=== PATIENT | female | born 1970 | race Caucasian/White ===

== ENCOUNTER → 2018-10-16 | Outpatient (CLI) | payer OTHER ==
--- NOTE | 2018-10-17 18:27 | RADRPT ---
PROCEDURE: XR Left hip and pelvis. CLINICAL INDICATION: Left hip pain and pelvic pain. TECHNIQUE: 3 views. Frontal pelvis. Frontal and lateral left hip. COMPARISON: None. FINDINGS: There is no fracture or dislocation. The soft tissues are normal. The right hip is unremarkable. The left hip demonstrates degenerative change with subarticular sclero sis, subarticular cysts, joint space narrowing, and osteophytes. There is no lytic or blastic lesion. There is no radiopaque foreign body. IMPRESSION: 1. Moderate degenerative changes of the left hip. 2. Otherwise unremarkable study. RPTAT: QQ .Benjamin Cooley MD, MD Date Time Electronically viewed and signed by .Benjamin Cooley MD, on 10/17/2018 18:27 .R/
== END | disposition home or self-care (01) ==
LOC: HKI 13:07
PROVIDERS: ATTEND Orthopaedic Surgery Adult Reconstructive Orthopaedic Surgery
DX: M16.12 Unilateral primary osteoarthritis, left hip (principal)
CPT/HCPCS: 73502

== ENCOUNTER 2018-12-26 10:35 | Inpatient (IN) | payer OTHER ==
[2018-12-26] VITALS (23 sets, daily range): BP systolic 101–145; BP diastolic 51–77; PULSE 78–144; RESP 13–30; Ht 157.5 cm; Wt 89.4 kg
[~2018-12-26] VITALS: Ht 157.5 cm; Wt 89.4 kg
[2018-12-26] MEDS ORDERED: VENL150C PO (11:22)
[2018-12-26] MEDS: LACTATED RINGER'S 1,000 ML IV SCH ×3 (11:52→21:17)
[2018-12-26] MEDS ORDERED: ACETAMINOPHEN 500 MG TAB PO ONE (12:00)
[2018-12-26] MEDS ORDERED: LANSOPRAZOLE 30 MG CAP PO ONE (12:00)
[2018-12-26] MEDS ORDERED: DEXAMETHASONE 4 MG/ML 1 ML INJ IV ONE (12:00)
[2018-12-26] MEDS ORDERED: ACETAMINOPHEN 1000MG/100ML IV 100 ML IVPB ONE (12:00)
[2018-12-26] MEDS ORDERED: GABAPENTIN 300 MG CAP PO ONE (12:00)
[2018-12-26] MEDS ORDERED: CEFAZOLIN 2 GM/50 ML (PMX) 50 ML IVPB ONE (12:00)
[2018-12-26] MEDS ORDERED: CELECOXIB 200 MG CAP PO ONE (12:00)
[2018-12-26] MEDS ORDERED: TRANEXAMIC ACID 1GM/100ML(PMX) 100 ML AT CLOSING IVPB ONE (12:00)
[2018-12-26] MEDS ORDERED: ONDANSETRON 4 MG INJ IV ONE (12:00)
--- NOTE | 2018-12-26 12:19 | PREAC ---
Date/Time of Note Date/Time of Note DATE: 12/26/18 TIME: 12:18 Anesthesia Eval and Record Evaluation Time Pre-Procedure Interview DATE: 12/26/18 TIME: 12:18 Age 48 Sex female NPO: 8 hrs Preoperative diagnosis L Hip OA Planned procedure L total hip replacement Past Medical History Past Medical History: Includes GI: Morbid obesity Surgery & Anesthesia Issues No known issue Meds Anticoagulation: No Beta Shanda within 24 hr: No Reason Beta Shanda not given: Pt. not on B-Shanda Reported Medications Venlafaxine Hcl* (Effexor XR*) 150 Mg Cap.sr.24h, 150 MG PO DAILY, CAP 12/26/18 Current Medications Lactated Ringer's 1,000 ml @ 125 mls/hr Q8H IV Last administered on 12/26/18at 11:52; Admin Dose 125 MLS/HR; Start 12/26/18 at 12:00; Stop 12/26/18 at 22:00 Cefazolin Sodium/ Dextrose 50 ml @ 100 mls/hr PRE-OP ONCE IVPB ; Start 12/26/18 at 12:00; Stop 12/26/18 at 12:29 Tranexamic Acid 100 ml @ 200 mls/hr PRE-OP ONCE IVPB ; Start 12/26/18 at 12:00; Stop 12/26/18 at 12:29 Tranexamic Acid 100 ml @ 200 mls/hr AT CLOSING ONCE IVPB ; Start 12/26/18 at 12:00; Stop 12/26/18 at 12:29 Ropivacaine/ Clonidine/ Epinephrine/ Ketorolac Tromethamine/ Sodium Chloride INTRA-OP INJ ; Start 12/26/18 at 16:30; Stop 12/26/18 at 22:00 Meds reviewed: Yes Allergies Coded Allergies: No Known Allergy (Unverified , 12/26/18) Allergies Reviewed: Yes Labs/Studies Labs Reviewed: Reviewed by anesthesiologist test: Negative Studies: ECG Pre-procedure Exam Last vitals Vital Signs Date Temp Pulse Resp B/P (MAP) Pulse Ox O2 O2 Flow FiO2 Time Delivery Rate 12/26/18 96.8 79 16 133/77 95 Room Air 12:09 (95) Airway: Adequate mouth opening, Adequate thyromental dist Mallampati: Mallampati II Teeth: Normal Lung: Normal Heart: Normal ASA Physical Status ASA physical status: 2 Emergency: None Planned Anesthetic General/MAC: ETT Neuraxial: Spinal Planned Pain Management Sub-arachniod narcotics Pre-operative Attestations Prior to commencing anesthesia and surgery, the patient was re-evaluated, there was verification of: *The patient's identity *The results of appropriate recent lab work and preoperative vital signs *The above evaluation not changing prior to induction *Anesthetic plan, risk benefits, alternative and complications discussed with patient/family; questions answered; patient/family understands, accepts and wishes to proceed. WILMER FRANCISCO December 26, 2018 12:19
--- NOTE | 2018-12-26 12:28 | HPN ---
Date/Time of Note Date/Time of Note DATE: 12/26/18 TIME: 12:28 Interval H&P Admission Note Pt. seen H&P reviewed: No system changes Patient denies fever, chills, shortness of breath, chest pain, nausea/vomiting, constipation, diarrhea, numbness, and tingling. MUSCULOSKELETAL: Left lower extremity Skin intact Sensation intact to light touch in a sural, saphenous, deep peroneal, superficial peroneal, medial and lateral plantar nerve distribution. Motor is intact, patient able to dorsiflex and plantarflex ankle and extend and flex great toe. Dorsalis Pedis pulse +2, Brisk capillary refill. Compartments are soft. Calves non-tender to palpation bilaterally. BHUPINDER LYLE MD December 26, 2018 12:28
[2018-12-26] MEDS ORDERED: morphine SULFATE/PF (10 MG/10 ML) INJ ONE (12:29)
[2018-12-26] MEDS ORDERED: ALBUTEROL 0.083% (NEB) 2.5 MG/3 ML AMP HHN PRN (12:30)
[2018-12-26] MEDS ORDERED: ONDANSETRON 4 MG INJ IV PRN (12:30)
[2018-12-26] MEDS ORDERED: METOCLOPRAMIDE 10 MG INJ IV PRN (12:30)
[2018-12-26] MEDS ORDERED: MEPERIDINE 25 MG INJ IV PRN (12:30)
[2018-12-26] MEDS ORDERED: FENTAnyl 50 MCG/ML VIAL IV PRN ×2 (12:30)
[2018-12-26] MEDS ORDERED: DESFLURANE 15 MIN ONE (12:30)
[2018-12-26] MEDS ORDERED: HYDROmorphONE 1 MG/5 ML IV SYRINGE IV PRN ×3 (12:30)
[2018-12-26] MEDS ORDERED: DIPHENHYDRAMINE 50 MG INJ IV PRN ×2 (12:30→17:00)
[2018-12-26] MEDS ORDERED: MIDAZOLAM 1 MG/ML 2 ML INJ ONE (12:31)
[2018-12-26] MEDS: TRANEXAMIC ACID 1GM/100ML(PMX) 100 ML PRE-OP IVPB ONE ×3 (14:03→16:12)
[2018-12-26] MEDS ORDERED: SUCCINYLCHOLINE CHLORIDE 100 MG/5 ML SYG IV ONE (14:13)
[2018-12-26] MEDS ORDERED: PROPOFOL 20 ML ONE (14:13)
[2018-12-26] MEDS ORDERED: TRANEXAMIC ACID 1GM/100ML(PMX) 100 ML ONE (14:13)
[2018-12-26] MEDS ORDERED: LIDOCAINE 100 MG SYRINGE ONE (14:13)
[2018-12-26] MEDS ORDERED: CEFAZOLIN 1 GM INJ ONE (14:13)
[2018-12-26] MEDS ORDERED: ROCURONIUM 50 MG INJ ONE (14:13)
[2018-12-26] MEDS ORDERED: VANCOMYCIN 1 GM INJ ONE (16:00)
[2018-12-26] MEDS ORDERED: SUGAMMADEX SODIUM 200 MG/2 ML VIAL IV ONE (16:37)
[2018-12-26] MEDS ORDERED: ROPIVACAINE 0.5 % 30 ML VIAL ONE (16:43)
[2018-12-26] MEDS ORDERED: DOCUSATE SODIUM 100 MG CAP PO ONE (17:00)
[2018-12-26] MEDS ORDERED: SENNA/DOCUSATE NA (8.6MG/50MG) TAB PO PRN (17:00)
[2018-12-26] MEDS ORDERED: BETHANECHOL 25 MG TAB PO PRN (17:00)
[2018-12-26] MEDS ORDERED: NA PHOSPHATE/BIPHOS 133 ML ENEMA PR PRN (17:00)
[2018-12-26] MEDS ORDERED: MAGNESIUM HYDROXIDE 30ML CUP PO PRN (17:00)
[2018-12-26] MEDS ORDERED: NACL 0.9% 3 ML SYG IV SCH (17:00)
[2018-12-26] MEDS ORDERED: NALOXONE (0.4 MG/ML) INJ IV PRN (17:00)
[2018-12-26] MEDS ORDERED: HYDROmorphONE 1 MG/ML SYG IV PRN (17:00)
[2018-12-26] MEDS ORDERED: oxyCODONE 5 MG TAB PO PRN ×3 (17:00)
[2018-12-26] MEDS ORDERED: BISACODYL 10 MG SUPP PR PRN (17:00)
--- NOTE | 2018-12-26 17:35 | OPR ---
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 Postoperative Diagnosis As above Operation/Procedure Performed Left total hip replacement Intraoperative use of x-ray Surgeon see signature line Mechanical Product Design Engineer Hansel Sotelo Anesthesia Type: general, spinal Estimated Blood Loss: 250 - 300 ml's Transfusion none Specimen Femoral head Grafts/Implants Depuy Acetabulum: Stanton Gription 52mm 3 hole Dome Screw: 35mm x1 Liner: 36mm neutral Femur: S-ROM [id number] mm Neck: 30mm Sleeve: D small Femoral Head: 36mm 3mm ceramic head Complications none Disposition: PACU Procedure Description PREOP DIAGNOSIS: Left hip osteoarthritis This secondary to development dysplasia of the hip POSTOP DIAGNOSIS: Same. SURGICAL PROCEDURE: Left total hip arthroplasty (CPT code 44334 with modifier 22). Modifier 22 indicated to significant increase in complexity, effort, time of approximately 25% secondary to dysplasia of the hip requiring additional equipment and implants and obesity making exposure and visualization more difficult. INDICATIONS: The patient is a 48 year-old woman with an orthopaedic history significant for progressively worsening left hip pain. The patient failed conservative management and wished to pursue surgical options. On physical exam, they walk with a moderate antalgic gait. No previous open surgical scars. Guarded range of motion but no contractures. Neurovascularly intact. Radiographs reveal advanced osteoarthritis with dysplasia of the hip. INFORMED CONSENT: The operative procedure was explained using diagrams and/or three-dimensional models. The rehabilitation, the potential risks, benefits and alternatives were discussed at length. Specific risks discussed included but were not limited to excessive blood loss and the need for transfusion and therefore the risk of transmissible disease or transfusion reaction, deep infection and the potential need for repetitive debridements, implant removal, long-term antibiotic therapy, possibly requiring deep venous access, leg-length discrepancy, dislocation, possibly recurrent, with the need for closed versus open reduction, bracing, femoral or acetabular fracture and the need for further surgery for fixation, neurovascular injury with temporary or permanent numbness, tingling, weakness or paralysis, deep venous thrombosis, pulmonary embolism and , persistent pain, weakness, or limp, late aseptic loosening and the need for revision, polyethylene wear-induced osteolysis and related problems, and finally, a wide variety of unanticipated medical problems. The opportunity to ask questions and address any concerns was provided. The patient wished to proceed. FINDINGS: 8 to 10 cm of adipose tissue above the IT band. Was severe bursitis of the greater trochanter. The femoral head had denuded cartilage throughout with ecchymosis and severe synovitis. Femoral anteversion was increased as expected. The acetabulum was very small and shallow also expected secondary to dysplasia. There is a large pulmonary hypertrophic labrum. Denuded cartilage and cystic formation in the acetabulum as well. Visualization and exposure was extremely difficult secondary to patient's body habitus. SURGERY IN DETAIL: The patient was taken into the Operating Room and placed supine on the operating table. Preoperatively, they were administered Ancef. They were administered spinal and general anesthesia by the Anesthesia Department. Dexamethasone 10mg IV was administered. The patient was placed on an [facility] Lateral Positioner in a right lateral decubitus position with the left hip superior. An axillary roll was placed, all pressure points were confirmed padded. The left hip region was prepped and draped in sterile fashion. A surgical pause was performed, correctly identifying the patient's name, the correct medical record number, the correct diagnosis, correct surgical procedure, and the correct extremity. 1g of tranexamic acid was dosed at the time of incision A posterolateral skin incision, approximately 25 cm in length was made, centered over the greater trochanter, skin and subcutaneous tissue sharply dissected. Deep fascial layer was identified and incised in line with the skin incision. Gluteus medius was retracted anteriorly. Piriformis tendon was not and was released with the remaining short external rotators. The interval between the gluteus minimus and hip capsule was developed superiorly, and a superior retractor was placed. Short external rotators were subperiosteally incised from the posterior proximal femur to the level of the lesser trochanter and an inferior retractor was placed. A posterior capsulotomy was performed. Two tag stitches were placed in the capsule. The hip was dislocated. A femoral neck osteotomy was performed at the preoperatively templated level and at a 90 degree angle as the S-ROM femoral system was being utilized as. A radial incision was made in the inferior capsule to the level of transverse acetabular ligament, which was identified, and an inferior retractor was placed inferior to the transverse acetabular ligament or inferior to the cotyloid notch. An anterior retractor was placed at the rim of the acetabulum. The acetabular labrum was then sharply excised. There was a large pulvinar in the base of the acetabulum, which was removed with electrocautery. The acetabulum was shallow and dysplastic with deficient posterior and superior coverage. The acetabulum was then sequentially reamed, beginning at 43 mm, up to a size 51 outer diameter reamer. A size 52 Gription- Stanton cup was inserted. A single dome screw was placed with excellent purchase, and a neutral 36 mm polyethylene trial was inserted and attention was placed to preparing the femur. Soft tissues were removed from the junction of the greater trochanter and the femoral neck osteotomy. A box osteotome was used lateralize the starting point. A starting awl was utilized, followed by a lateralizing reamer, followed by axial reamers for the S-ROM system up to a size 9.5mm for size 9mm stem. At this time the appropriate size and length stem was attached to the reamer for t he femoral metaphysis. This was reamed to a size 14 mm. The calcar was then reamed to size D small. A 30+4 mm neck was trialed with a neutral femoral head was inserted at this point it was noted the hip was significantly long and reduction was not possible. It was difficult to visualize the level of the lesser trochanter at the time of the femoral neck cut neck cut was made slightly high per the templating done preoperatively. Given that this was too much length the trial was removed the neck was recut taken away several more millimeters. And the trial was replaced. Range of motion stability was very good. Intraoperative x-ray was obtained demonstrated good position of all components however the offset was too great. Therefore the trial was removed a 30 mm neck was placed with a +3 ceramic head to obtain equal leg lengths. Range of motion and stability were quite good, including forward flexion to greater than 90 degrees, internal rotation greater than 80 degrees at 90 degrees flexion, internal rotation greater than 80 degrees with the hip adducted and at 45 degrees of flexion. External Rotation was also tested, and was stable with no impingement or instability at full extension and 30 degrees external rotation. Ranawat sign was 50 degrees. Intraoperative x-ray revealed the hip to have satisfactory position of all components. The hip was dislocated in controlled manner using a bone hook and the trial components removed. Local anesthetic was injected periarticular. A formal neutral 36 mm polyethylene was inserted into the cup, confirmed seated and locked. On the femoral side, a S-ROM size D small sleeve was placed followed by insertion of a 9 x 14 x 150 mm stem placed in the previously trialed anteversion. A 36 +3 mm head was inserted onto the taper. The hip was reduced. One final time range of motion, stability, and soft tissue tension were satisfactory. The wound was thoroughly irrigated. 1g of tranexamic acid was dosed. The previously tagged arthrotomy, as well as the piriformis tendon could not be repaired secondary to previous shortening and contracture of the tissues. At this time 1 g of vancomycin powder was placed deep in the wound. This is felt to be warranted secondary to length of the case as well as significant adipose tissue with a potential for wound infection. The deep fascial layer was closed with 1 Vicryl in a [id number], interrupted fashion, deep s ubcutaneous tissues irrigated and closed with 0 Vicryl interrupted fashion in 2 separate layers, subcutaneous tissues irrigated, closed with 2-0 Vicryl in an inverted, interrupted fashion. The skin was closed with lavon. A sterile dressing was applied, abduction pillow was placed between the legs, and the patient was transferred to a supine position. Postoperative clinical leg lengths, rotation of limb were neutral and symmetric. All Counts were correct x2 DISPOSITION: Patient transferred to PACU in stable condition. The patient will be weight bearing as tolerated on the operative extremity. PT will begin POD#0 if available. Posterior hip precautions for 3 months with an abduction pillow. Postoperative AP pelvis will be ordered in PACU. Bilateral knee high SCDs will be worn while admitted. ASA 81mg BID will be given for DVT prophylaxis for 6 weeks. Pain will be controlled with medication. The patient will follow up in clinic in approximately 2 weeks. Implant: DePuy: Acetabulum: Stanton Gription 52mm 3 hole Dome Screw: 35mm x1 Liner: 36mm neutral Femur: S-ROM [id number] mm Neck: 30mm Sleeve: D small Femoral Head: 36mm 3mm ceramic head BHUPINDER LYLE MD December 26, 2018 17:34
[2018-12-26] MEDS: CEFAZOLIN 2 GM/50 ML (PMX) 50 ML IVPB SCH (17:40)
[2018-12-26] MEDS ORDERED: hydrOXYzine HCL 25 MG TAB PO PRN (19:30)
--- NOTE | 2018-12-26 19:30 | CONS ---
Assessment/Plan Assessment/Plan Hospital Course (Demo Recall) 48 yo F with PMH osteoarthritis, depression, and anxiety presented to [facility] for elective total left hip replacement, POD #0 Assessment/Plan (Daily) 1. Osteoarthritis of left hip s/p total replacement, POD #0 - Management per Ortho - pain control - aspirin BID - PT ordered 2. Depression - continue home venlafaxine dose 3. Anxiety - Hydroxyzine PRN 4. Diet - regular 5. Disposition - Awaiting PT evaluation for discharge planning Thank you for allowing me to participate in the care of your patient. Please call with any questions Consultation Date/Type/Reason Admit Date/Time December 26, 2018 at 10:35 Date of Consultation: December 26, 2018 Type of Consult Internal Medicine Reason for Consultation medical management Date/Time of Note DATE: 12/26/18 TIME: 19:20 Hx of Present Illness 48 yo F with PMH osteoarthritis, depression and anxiety presented to [facility] for elective left total hip replacement. Patient was evaluated in PACU. Internal Medicine consultation was placed for medical management. Patient tolerated surgical intervention without any intraoperative complications. Patient denies any chest pain, shortness of breath, dizziness, cough, abdominal pain, urinary issues, constipation or diarrhea. All 12 systems reviewed and pertinent positives as per HPI. All others negative. Constitutional: No chills, No disoriented Eyes: No discharge ENT: No congestion Respiratory: No cough, No shortness of breath, No sputum, No wheezing Cardiovascular: No chest pain, No edema, No lightheadedness, No palpitations Gastrointestinal: No pain, No constipation, No diarrhea, No nausea, No vomiting Genitourinary: no complaints Musculoskeletal: No bone/joint pain Skin: No erythema, No laceration, No rash Neurologic: no complaints Endocrine: no complaints Lymphatic: no complaints Psychological: nl mood/affect Immunologic: no complaints Past Medical History Medical History: other (depression and anxiety) Home Meds Reported Medications Venlafaxine Hcl* (Effexor XR*) 150 Mg Cap.sr.24h, 150 MG PO DAILY, CAP 12/26/18 Medications Current Medications Lactated Ringer's 1,000 ml @ 125 mls/hr Q8H IV Last administered on 12/26/18at 11:52; Admin Dose 125 MLS/HR; Start 12/26/18 at 12:00; Stop 12/26/18 at 22:00 Lactated Ringer's 1,000 ml @ 80 mls/hr [id number] IV Last administered on 12/26/18at 17:42; Admin Dose 80 MLS/HR; Start 12/26/18 at 16:59 Oxycodone HCl (Roxicodone) 15 mg Q4H PRN PO .PAIN; Start 12/26/18 at 17:00 Oxycodone HCl (Roxicodone) 10 mg Q4H PRN PO .PAIN; Start 12/26/18 at 17:00 Oxycodone HCl (Roxicodone) 5 mg Q4H PRN PO .PAIN; Start 12/26/18 at 17:00 Hydromorphone HCl (Dilaudid) 1 mg Q3H PRN IV .BREAKTHROUGH PAIN; Start 12/26/18 at 17:00 Acetaminophen (Tylenol Tab) 1,000 mg Q8 PO ; Start 12/26/18 at 22:00 Ondansetron HCl (Zofran Inj) 4 mg Q4H PRN IV NAUSEA/VOMITING; Start 12/27/18 at 17:00 Cefazolin Sodium/ Dextrose 50 ml @ 100 mls/hr Q8H IVPB Last administered on 12/26/18at 17:40; Admin Dose 100 MLS/HR; Start 12/26/18 at 17:00; Stop 12/27/18 at 09:29 Gabapentin (Neurontin) 300 mg QHS PO ; Start 12/26/18 at 21:00 Dexamethasone (Decadron) 10 mg ONCE ONCE IV ; Start 12/27/18 at 07:00; Stop 12/27/18 at 07:01 Pantoprazole (Protonix Tab) 40 mg DAILY@06 PO ; Start 12/27/18 at 06:00 Docusate Sodium (Colace) 200 mg BID PO ; Start 12/27/18 at 09:00; Stop 12/29/18 at 21:01 Simethicone (Mylicon) 80 mg TID PRN PO .GAS; Start 12/26/18 at 17:00 Senna/Docusate Sodium (Senokot-S) 2 tab BID PRN PO .CONSTIPATION; Start 12/26/18 at 17:00 Magnesium Hydroxide (Milk Of Mag) 30 ml HS PRN PO .CONSTIPATION; Start 12/26/18 at 17:00 Bisacodyl (Dulcolax Supp) 10 mg DAILY PRN DE .CONSTIPATION; Start 12/26/18 at 17:00 Sodium Biphosphate/ Sodium Phosphate (Fleet Enema) 133 ml DAILY PRN DE .CONSTIPATION; Start 12/26/18 at 17:00 Diphenhydramine HCl (Benadryl) 25 mg Q4H PRN IV .ITCHING; Start 12/26/18 at 17:00 Naloxone HCl (Narcan) 0.2 mg Q2M PRN IV .RESP RATE; Start 12/26/18 at 17:00 IV Flush (NS 3 ml) 3 ml per protocol IV ; Start 12/26/18 at 17:00 Bethanechol Chloride (Urecholine) 25 mg URINARY CATH D/C PRN PO UNABLE TO VOID; Start 12/26/18 at 17:00 Aspirin (Halfprin) 81 mg BID PO ; Start 12/27/18 at 09:00 Allergies: Coded Allergies: No Known Allergy (Unverified , 12/26/18) Past Surgical History Past Surgical Hx: cholecystectomy Family History Significant Family History: no pertinent family hx Social History Alcohol Use: none Smoking Status: Former smoker Drug Use: none Exam/Review of Systems Exam Vitals Vital Signs Date Temp Pulse Resp B/P (MAP) Pulse Ox O2 O2 Flow FiO2 Time Delivery Rate 12/26/18 110 17 119/67 98 Room Air 18:10 (84) 12/26/18 8.0 17:15 12/26/18 98.3 17:05 Exam General: Patient is laying in bed and answers questions appropriately. no acute distress Mentation: Patient is alert and oriented 4, Head: Normocephalic atraumatic Eyes: EOMI, pupils reactive to light Neck: Supple, nontender, midline Respiratory: Clear to auscultation bilaterally. no wheezing or rhonchi Cardiovascular: S1, S2, regular rate and rhythm, no obvious murmurs Gastrointestinal: soft, nontender to palpation, nondistended, bowel sounds heard. no rebound or guarding Ext: Moves all extremities spontaneously. no edema, cyanosis or clubbing Skin: dressing in place left hip. no discharge or drainage Imaging Imaging PROCEDURE: XR Hip. CLINICAL INDICATION: Status Post Hip surgery TECHNIQUE: AP view of the left hip was performed. COMPARISON: None. FINDINGS: The patient is status post left total hip arthroplasty. Hardware appears intact and appropriate in position. There is no visualized fracture or dislocation. There is overlying subcutaneous emphysema and skin lavon. IMPRESSION: Status post left total hip arthroplasty. Intact hardware and near anatomic alignment. RPTAT: DD .Luis Armando Sorensen MD, MD Date Time Electronically viewed and signed by .Luis Armando Sorensen MD, MD on 12/26/2018 17:29 PROCEDURE: XR Pelvis. CLINICAL INDICATION: Status post total hip TECHNIQUE: Single AP view of the pelvis. COMPARISON: No prior studies are available for comparison. FINDINGS: The patient is status post left total hip arthroplasty. Hardware appears intact in appropriate position. There is overlying subcutaneous emphysema. The sacroiliac joints are normal. The right hip joint is normally aligned. IMPRESSION: Status post left total hip arthroplasty. Intact hardware and near anatomic alignment. RPTAT: DD .Luis Armando Sorensen MD, Date Time Electronically viewed and signed by .Luis Armando Sorensen MD, on 12/26/2018 17:26 Medications Medication Current Medications Lactated Ringer's 1,000 ml @ 125 mls/hr Q8H IV Last administered on 12/26/18at 11:52; Admin Dose 125 MLS/HR; Start 12/26/18 at 12:00; Stop 12/26/18 at 22:00 Lactated Ringer's 1,000 ml @ 80 mls/hr [id number] IV Last administered on 12/26/18at 17:42; Admin Dose 80 MLS/HR; Start 12/26/18 at 16:59 Oxycodone HCl (Roxicodone) 15 mg Q4H PRN PO .PAIN; Start 12/26/18 at 17:00 Oxycodone HCl (Roxicodone) 10 mg Q4H PRN PO .PAIN; Start 12/26/18 at 17:00 Oxycodone HCl (Roxicodone) 5 mg Q4H PRN PO .PAIN; Start 12/26/18 at 17:00 Hydromorphone HCl (Dilaudid) 1 mg Q3H PRN IV .BREAKTHROUGH PAIN; Start 12/26/18 at 17:00 Acetaminophen (Tylenol Tab) 1,000 mg Q8 PO ; Start 12/26/18 at 22:00 Ondansetron HCl (Zofran Inj) 4 mg Q4H PRN IV NAUSEA/VOMITING; Start 12/27/18 at 17:00 Cefazolin Sodium/ Dextrose 50 ml @ 100 mls/hr Q8H IVPB Last administered on 12/26/18at 17:40; Admin Dose 100 MLS/HR; Start 12/26/18 at 17:00; Stop 12/27/18 at 09:29 Gabapentin (Neurontin) 300 mg QHS PO ; Start 12/26/18 at 21:00 Dexamethasone (Decadron) 10 mg ONCE ONCE IV ; Start 12/27/18 at 07:00; Stop 12/27/18 at 07:01 Pantoprazole (Protonix Tab) 40 mg DAILY@06 PO ; Start 12/27/18 at 06:00 Docusate Sodium (Colace) 200 mg BID PO ; Start 12/27/18 at 09:00; Stop 12/29/18 at 21:01 Simethicone (Mylicon) 80 mg TID PRN PO .GAS; Start 12/26/18 at 17:00 Senna/Docusate Sodium (Senokot-S) 2 tab BID PRN PO .CONSTIPATION; Start 12/26/18 at 17:00 Magnesium Hydroxide (Milk Of Mag) 30 ml HS PRN PO .CONSTIPATION; Start 12/26/18 at 17:00 Bisacodyl (Dulcolax Supp) 10 mg DAILY PRN DE .CONSTIPATION; Start 12/26/18 at 17:00 Sodium Biphosphate/ Sodium Phosphate (Fleet Enema) 133 ml DAILY PRN DE .CONSTIPATION; Start 12/26/18 at 17:00 Diphenhydramine HCl (Benadryl) 25 mg Q4H PRN IV .ITCHING; Start 12/26/18 at 17:00 Naloxone HCl (Narcan) 0.2 mg Q2M PRN IV .RESP RATE; Start 12/26/18 at 17:00 IV Flush (NS 3 ml) 3 ml per protocol IV ; Start 12/26/18 at 17:00 Bethanechol Chloride (Urecholine) 25 mg URINARY CATH D/C PRN PO UNABLE TO VOID; Start 12/26/18 at 17:00 Aspirin (Halfprin) 81 mg BID PO ; Start 12/27/18 at 09:00 JACOBY WILCOX MD December 26, 2018 19:30
[2018-12-26] MEDS ORDERED: GABAPENTIN 300 MG CAP PO SCH (21:00)
[2018-12-26] MEDS: ONDANSETRON 4 MG INJ IV PRN (21:18)
[2018-12-26] MEDS: ACETAMINOPHEN 500 MG TAB PO SCH (21:18)
[2018-12-27 00:01] VITALS: BP 101/60; PULSE 89; RESP 18
[2018-12-27] MEDS: CEFAZOLIN 2 GM/50 ML (PMX) 50 ML IVPB SCH ×2 (01:05→09:47)
[2018-12-27 04:16] VITALS: BP 107/58; PULSE 84; RESP 18
[2018-12-27] MEDS: LACTATED RINGER'S 1,000 ML IV SCH (05:41)
[2018-12-27] MEDS: ACETAMINOPHEN 500 MG TAB PO SCH ×2 (05:42→14:19)
[2018-12-27] MEDS: ONDANSETRON 4 MG INJ IV PRN (05:42)
[2018-12-27] MEDS ORDERED: PANTOPRAZOLE (EC) 40 MG TAB PO SCH (06:00)
[2018-12-27] MEDS ORDERED: DEXAMETHASONE 10 MG/ML 1 ML INJ IV ONE (07:00)
[2018-12-27 08:30] VITALS: BP 133/69; PULSE 92; RESP 18
--- NOTE | 2018-12-27 08:58 | PAC ---
Date/Time of Note Date/Time of Note DATE: 12/27/18 TIME: 08:58 Post-Anesthesia Notes Post-Anesthesia Note Last documented vital signs Vital Signs Date Temp Pulse Resp B/P (MAP) Pulse Ox O2 O2 Flow FiO2 Time Delivery Rate 12/27/18 98.4 06:24 12/27/18 84 18 107/58 97 04:16 (74) 12/26/18 Room Air 21:20 12/26/18 8.0 17:15 Activity: WNL Respiratory function: WNL Cardiovascular function: WNL Mental status: Baseline Pain reasonably controlled: Yes Hydration appropriate: Yes Nausea/Vomiting absent: Yes WILMER FRANCISCO December 27, 2018 08:58
[2018-12-27] MEDS ORDERED: VENLAFAXINE (XR) 75 MG CAP PO SCH (09:00)
[2018-12-27] MEDS ORDERED: DOCUSATE SODIUM 100 MG CAP PO SCH (09:00)
[2018-12-27] MEDS ORDERED: ASPIRIN (EC) 81 MG TAB PO SCH (09:00)
--- NOTE | 2018-12-27 11:29 | CONS ---
Assessment/Plan Assessment/Plan Hospital Course (Demo Recall) 48 yo F with PMH osteoarthritis, depression, and anxiety presented to [facility] for e lective total left hip replacement, POD #1 Assessment/Plan (Daily) 1. Osteoarthritis of left hip s/p total replacement, POD #1 - Management per Ortho - pain control - PT consultation appreciated 2. Depression - continue home venlafaxine dose 3. Anxiety - Hydroxyzine PRN 4. Disposition - Medically cleared for discharge from medicine standpoint. Will need to be cleared by Ortho and PT prior to d/c home Thank you for allowing me to participate in the care of your patient. Please call with any questions Consultation Date/Type/Reason Admit Date/Time December 26, 2018 at 10:35 Initial Consult Date 12/26/18 Type of Consult Internal Medicine Date/Time of Note DATE: 12/27/18 TIME: 11:29 24 HR Interval Summary Free Text/Dictation Patient states pain is minimal and only worse when ambulating. No acute overnight events. Exam/Review of Systems Exam Vitals Vital Signs Date Temp Pulse Resp B/P (MAP) Pulse Ox O2 O2 Flow FiO2 Time Delivery Rate 12/27/18 98.3 92 18 133/69 Room Air 08:30 (90) 12/27/18 97 04:16 12/26/18 8.0 17:15 Intake and Output 12/26/18 12/26/18 12/27/18 1515:00 23:00 07:00 IntakeIntake Total 2100 ml 1250 ml 1250 ml OutputOutput Total 500 ml 550 ml BalanceBalance 2100 ml 750 ml 700 ml Exam General: Patient is laying in bed and answers questions appropriately. no acute distress Neck: Supple, nontender, midline Respiratory: Clear to auscultation bilaterally. no wheezing or rhonchi Cardiovascular: S1, S2, regular rate and rhythm, no obvious murmurs Gastrointestinal: soft, nontender to palpation, nondistended, bowel sounds heard. no rebound or guarding Ext: Moves all extremities spontaneously. no edema, cyanosis or clubbing Skin: dressing in place left hip. clean and dry Results Result Diagram: 12/27/18 0451 12/27/18 0451 Results 24hrs Laboratory Tests Test 12/27/18 04:51 12/27/18 07:22 White Blood Count 13.1 H Red Blood Count 3.28 L Hemoglobin 9.0 L Hematocrit 26.7 L Mean Corpuscular Volume 81.4 L Mean Corpuscular Hemoglobin 27.4 L Mean Corpuscular Hemoglobin Concent 33.7 Red Cell Distribution Width 13.7 Platelet Count 276 Mean Platelet Volume 11.0 H Immature Granulocytes % 0.800 H Neutrophils % 80.4 H Lymphocytes % 12.2 L Monocytes % 6.5 Eosinophils % 0.0 Basophils % 0.1 Nucleated Red Blood Cells % 0.0 Immature Granulocytes # 0.110 H Neutrophils # 10.5 H Lymphocytes # 1.6 Monocytes # 0.9 Eosinophils # 0.0 Basophils # 0.0 Nucleated Red Blood Cells # 0.0 Prothrombin Time 13.5 Prothrombin Time Ratio 1.1 INR International Normalized Ratio 1.02 Sodium Level 138 Potassium Level 3.8 Chloride Level 108 Carbon Dioxide Level 24 Anion Gap 6 Blood Urea Nitrogen 14 Creatinine 0.52 Est Glomerular Filtrat Rate mL/min > 60 Glucose Level 136 Calcium Level 8.0 L Lab Scanned Report REFERENCE LAB Medications Medication Current Medications Lactated Ringer's 1,000 ml @ 80 mls/hr [id number] IV Last administered on 12/27/18at 05:41; Admin Dose 80 MLS/HR; Start 12/26/18 at 16:59 Oxycodone HCl (Roxicodone) 15 mg Q4H PRN PO .PAIN; Start 12/26/18 at 17:00 Oxycodone HCl (Roxicodone) 10 mg Q4H PRN PO .PAIN; Start 12/26/18 at 17:00 Oxycodone HCl (Roxicodone) 5 mg Q4H PRN PO .PAIN; Start 12/26/18 at 17:00 Hydromorphone HCl (Dilaudid) 1 mg Q3H PRN IV .BREAKTHROUGH PAIN; Start 12/26/18 at 17:00 Acetaminophen (Tylenol Tab) 1,000 mg Q8 PO Last administered on 12/27/18at 05:42; Admin Dose 1,000 MG; Start 12/26/18 at 22:00 Gabapentin (Neurontin) 300 mg QHS PO Last administered on 12/26/18at 21:18; Admin Dose 300 MG; Start 12/26/18 at 21:00 Pantoprazole (Protonix Tab) 40 mg DAILY@06 PO Last administered on 12/27/18at 05:42; Admin Dose 40 MG; Start 12/27/18 at 06:00 Docusate Sodium (Colace) 200 mg BID PO Last administered on 12/27/18at 09:47; Admin Dose 200 MG; Start 12/27/18 at 09:00; Stop 12/29/18 at 21:01 Simethicone (Mylicon) 80 mg TID PRN PO .GAS; Start 12/26/18 at 17:00 Senna/Docusate Sodium (Senokot-S) 2 tab BID PRN PO .CONSTIPATION; Start 12/26/18 at 17:00 Magnesium Hydroxide (Milk Of Mag) 30 ml HS PRN PO .CONSTIPATION; Start 12/26/18 at 17:00 Bisacodyl (Dulcolax Supp) 10 mg DAILY PRN AK .CONSTIPATION; Start 12/26/18 at 17:00 Sodium Biphosphate/ Sodium Phosphate (Fleet Enema) 133 ml DAILY PRN AK .C ONSTIPATION; Start 12/26/18 at 17:00 Diphenhydramine HCl (Benadryl) 25 mg Q4H PRN IV .ITCHING; Start 12/26/18 at 17:00 Naloxone HCl (Narcan) 0.2 mg Q2M PRN IV .RESP RATE; Start 12/26/18 at 17:00 IV Flush (NS 3 ml) 3 ml per protocol IV ; Start 12/26/18 at 17:00 Bethanechol Chloride (Urecholine) 25 mg URINARY CATH D/C PRN PO UNABLE TO VOID Last administered on 12/27/18at 05:41; Admin Dose 25 MG; Start 12/26/18 at 17:00 Aspirin (Halfprin) 81 mg BID PO Last administered on 12/27/18at 09:47; Admin Do se 81 MG; Start 12/27/18 at 09:00 Venlafaxine HCl (Effexor Xr) 150 mg DAILY PO Last administered on 12/27/18at 11:05; Admin Dose 150 MG; Start 12/27/18 at 09:00 Hydroxyzine HCl (Atarax) 25 mg Q6H PRN PO anxiety; Start 12/26/18 at 19:30 Ondansetron HCl (Zofran Inj) 4 mg Q4H PRN IV NAUSEA AND/OR VOMITING Last administered on 12/27/18at 05:42; Admin Dose 4 MG; Start 12/26/18 at 21:11 JACOBY WILCOX MD December 27, 2018 11:29
[2018-12-27] MEDS ORDERED: GABA300C16 PO (13:34)
[2018-12-27] MEDS ORDERED: PROC5TAB9 PO (13:34)
[2018-12-27] MEDS ORDERED: ASPI-1044 PO (13:34)
[2018-12-27] MEDS ORDERED: Acetaminophen PO (13:34)
[2018-12-27] MEDS ORDERED: OXYC-481 PO (13:34)
[2018-12-27 15:25] VITALS: BP 110/56; PULSE 95; RESP 18
[2018-12-27] MEDS ORDERED: ONDANSETRON 4 MG INJ IV PRN (17:00)
--- NOTE | 2018-12-27 18:30 | PN ---
Date/Time of Note Date/Time of Note DATE: 12/27/18 TIME: 18:29 Assessment/Plan Lines/Catheters IV Catheter Type (from Nrsg): Peripheral IV Lopez in Place (from Nrsg): No Assessment/Plan Chief Complaint/Hosp Course POD#1 s/p left primary ENRIQUE for develop of the dysplasia of the hip. Patient is doing much better. Nausea and vomiting has resolved. She is now tolerating diet. -Post op H&H stable -PT/OT. Posterior Hip Precautions -Joints pain control protocol -DVT prophylaxis: SCD's, aspirin 81 mg twice daily x6 weeks -Weight bearing status: as tolerated -Post-op XR ordered -Abx: 24h vanc/ancef -Diet: ADAT -Lopez: Discontinue -Discharge planning consult Planned Discharge Date: Today Discharge to home with home health Subjective 24 Hr Interval Summary Patient doing well No acute events overnight Pain is well controlled. Nausea and vomiting has resolved. Exam/Review of Systems Vital Signs Vitals Vital Signs Date Temp Pulse Resp B/P (MAP) Pulse Ox O2 O2 Flow FiO2 Time Delivery Rate 12/27/18 98.3 95 18 110/56 99 Room Air 15:25 (74) 12/26/18 8.0 17:15 Intake and Output 12/26/18 12/26/18 12/27/18 1515:00 23:00 07:00 IntakeIntake Total 2100 ml 1250 ml 1250 ml OutputOutput Total 500 ml 550 ml BalanceBalance 2100 ml 750 ml 700 ml Exam Free Text/Dictation Left lower extremity: Dressing: clean, dry, and intact, no erythema Sensation intact to light touch in a sural, saphenous, deep peroneal, superficial peroneal, medial and lateral plantar nerve distribution. Motor is intact, patient able to dorsiflex and plantarflex ankle and extend and flex great toe. Dorsalis Pedis pulse +2, Brisk capillary refill. Compartments are soft. Calves non-tender to palpation bilaterally. Results Result Diagram: 12/27/18 0451 12/27/18 0451 BHUPINDER LYLE MD December 27, 2018 18:30
--- NOTE | 2018-12-27 18:30 | DS ---
Date/Time of Note Date/Time of Note DATE: 12/27/18 TIME: 18:30 Discharge Summary Admission/Discharge Info Admit Date/Time December 26, 2018 at 10:35 Discharge Date/Time December 27, 2018 at 17:15 Patient Condition: Good Hospital Course POD#1 s/p left primary ENRIQUE for develop of the dysplasia of the hip. Patient is doing much better. Nausea and vomiting has resolved. She is now tolerating diet. -Post op H&H stable -PT/OT. Posterior Hip Precautions -Joints pain control protocol -DVT prophylaxis: SCD's, aspirin 81 mg twice daily x6 weeks -Weight bearing status: as tolerated -Post-op XR ordered -Abx: 24h vanc/ancef -Diet: ADAT -Lopez: Discontinue -Discharge planning consult Planned Discharge Date: Today Discharge to home with home health Home Meds Active Scripts Prochlorperazine* (Prochlorperazine*) 5 Mg Tablet, 5 MG PO TID for nausea/vomiting, #21 TAB Prov:BHUPINDER LYLE MD 12/27/18 Oxycodone Hcl* (IR) (Roxicodone*) 5 Mg Tab, 5-10 MG PO Q4H PRN for .PAIN, #90 TAB Prov:BHUPINDER LYLE MD 12/27/18 Gabapentin* (Gabapentin*) 300 Mg Capsule, 300 MG PO QHS for 30 Days, CAP Prov:BHUPINDER LYLE MD 12/27/18 Aspirin Delayed Release (Aspirin Delayed Release) 81 Mg Tablet.dr, 81 MG PO BID for 42 Days Prov:BHUPINDER LYLE MD 12/27/18 [Acetaminophen Tab] 500 MG TAB No Conflict Check, 1000 MG PO Q8 for 10 Days, TAB Prov:BHUPINDER LYLE MD 12/27/18 Reported Medications Venlafaxine Hcl* (Effexor XR*) 150 Mg Cap.sr.24h, 150 MG PO DAILY, CAP 12/26/18 Primary Care Provider [facility] Pending Labs Laboratory Tests Test 12/27/18 04:51 12/27/18 07:22 White Blood Count 13.1 10^3/ul (4.8-10.8) Red Blood Count 3.28 10^6/ul (4.20-5.40) Hemoglobin 9.0 g/dl (12.0-16.0) Hematocrit 26.7 % (37.0-47.0) Mean Corpuscular Volume 81.4 fl (82.0-101.0) Mean Corpuscular Hemoglobin 27.4 pg (29.0-33.0) Mean Corpuscular 33.7 g/dl (32.0-37.0) Hemoglobin Concent Red Cell Distribution Width 13.7 % (11.5-14.5) Platelet Count 276 10^3/UL (140-415) Mean Platelet Volume 11.0 fl (7.4-10.4) Immature Granulocytes % 0.800 % (0.001-0.429) Neutrophils % 80.4 % (39.0-77.0) Lymphocytes % 12.2 % (15.0-51.0) Monocytes % 6.5 % (0.0-11.0) Eosinophils % 0.0 % (0.0-7.0) Basophils % 0.1 % (0.0-2.0) Nucleated Red Blood Cells % 0.0 /100WBC (0.0-0.0) Immature Granulocytes # 0.110 10^3/ul (0.0-0.031) Neutrophils # 10.5 10^3/ul (1.6-7.5) Lymphocytes # 1.6 10^3/ul (0.8-2.9) Monocytes # 0.9 10^3/ul (0.3-0.9) Eosinophils # 0.0 10^3/ul (0.0-0.5) Basophils # 0.0 10^3/ul (0.0-0.1) Nucleated Red Blood Cells # 0.0 10^3/ul (0.0-0.0) Prothrombin Time 13.5 Sec (11.9-14.9) Prothrombin Time Ratio 1.1 INR International 1.02 Normalized Ratio Sodium Level 138 mmol/L (135-144) Potassium Level 3.8 mmol/L (3.5-5.1) Chloride Level 108 mmol/L (97-110) Carbon Dioxide Level 24 mmol/L (21-31) Anion Gap 6 (5-13) Blood Urea Nitrogen 14 mg/dl (7-20) Creatinine 0.52 mg/dl (0.44-1.00) Est Glomerular Filtrat > 60 mL/min (>60) Rate mL/min Glucose Level 136 mg/dl (70-220) Calcium Level 8.0 mg/dl (8.4-10.2) Lab Scanned Report REFERENCE LAB [id number] BHUPINDER LYLE MD December 27, 2018 18:30
== END 2018-12-27 17:15 | disposition home health service (06) | DRG 470 ==
LOC: REC 10:35 → MS1 20:30
PROVIDERS: ADMIT Orthopaedic Surgery Adult Reconstructive Orthopaedic Surgery; ATTEND Orthopaedic Surgery Adult Reconstructive Orthopaedic Surgery
PROC: 0SRB04Z Replacement of Left Hip Joint with Ceramic on Polyethylene Synthetic Substitute, Open Approach (ICD-10-PCS; principal; 2018-12-26 13:00)
DX: M16.12 Unilateral primary osteoarthritis, left hip (principal); Q65.89 Other specified congenital deformities of hip; F32.9 Major depressive disorder, single episode, unspecified; F41.9 Anxiety disorder, unspecified
CPT/HCPCS: 72170; 73500; 73530; 80048; 85025; 85610; 86850; 86900; 86901; 87081; 87086; 88304; 88311; 97116; 97161; 97165; 97530; C1713; C1776; J0131; J0171; J0690; J0735; J1100; J1885; J2001; J2250; J2274; J2405; J2795; J3370; J7120